=== PATIENT | male | born 1980 | race Caucasian/White ===

== ENCOUNTER 2021-11-07 19:11 | Emergency (ER) | payer SELFPAY ==
[2021-11-07] MEDS ORDERED: Acetaminophen 325 MG TAB ONE (19:34)
== END 2021-11-07 20:20 | disposition home or self-care (01) ==
LOC: NAV ERS 19:11
DX: U07.1 COVID-19 (principal); J06.9 Acute upper respiratory infection, unspecified; F17.210 Nicotine dependence, cigarettes, uncomplicated
CPT/HCPCS: 71046; 87804; U0003; U0005